=== PATIENT | female | born 1965 | race Caucasian/White ===

== ENCOUNTER 2021-08-16 11:33 | Emergency (ER) | payer OTHER ==
[~2021-08-16] VITALS: Ht 170.2 cm; Wt 113.4 kg
[~2021-08-16 11:33] MED LIST: AMOXICILLIN875 MG PO; AUGMENTIN 875-1 EACH PO; COMBIVENT RESPIM4 GM INH; DICLOFENAC SODI75 MG PO; EXCEDRIN MIGRA1 EAC2 PO; IBUPROFEN600 MG PO; METHADONE HCL10 MG PO; METHADONE HCL5 MG PO; MIGRAINE RELIE1 EACH PO; MYRBETRIQ50 MG PO; OMEPRAZOLE40 MG PO; PREDNISONE20 MG PO; ROBAXIN-750750 MG PO; VENTOLIN HFA18 GM INH; VIVELLE-DOT1 EAC1 TD
--- OUTSIDE RECORDS SUMMARY | 2021-08-16 11:36 | XMS ---
PreManage Notification: DAVE PABON Security Labor Relations Manager Events No recent Security Events currently on file CRITERIA MET - ANDREWP CARE PROVIDERS DHEERAJ MORFIN Family [facility] Current PHONE: Unknown RASHAWN De Leon Physical Medicine \T\ Rehabilitation Current PHONE: Unknown Cece has no Care Guidelines for this patient. Vickie VISIT COUNT (12 MO.) Candice Macias TOTAL 1 NOTE: Visits indicate total known visits. ED/UCC VISIT TRACKING (12 MO.) 08/16/2021 11:34 LO[facility] Horowitz [place] TYPE: Emergency COMPLAINT: - POSS BLOODCLOT INPATIENT VISIT TRACKING (12 MO.) No inpatient visits to display in this time frame [email or web address]
[2021-08-16] MEDS ORDERED: OXYCODONE HCL5 MG PO (12:12)
[2021-08-16] MEDS ORDERED: MAPAP500 MG PO (12:14)
[2021-08-16] MEDS ORDERED: ZANAFLEX4 M1 PO (12:15)
[2021-08-16] MEDS ORDERED: MIRALAX17 GM PO (12:15)
[2021-08-16] MEDS ORDERED: BENADRYL25 MG PO (12:15)
[2021-08-16] MEDS ORDERED: FLONASE ALLERG9.9 ML (12:16)
== END 2021-08-16 15:00 | disposition home or self-care (01) ==
LOC: ED 11:33
DX: R60.0 Localized edema (principal); J44.9 Chronic obstructive pulmonary disease, unspecified; M06.9 Rheumatoid arthritis, unspecified; M19.90 Unspecified osteoarthritis, unspecified site; F17.200 Nicotine dependence, unspecified, uncomplicated; Z88.0 Allergy status to penicillin; Z88.1 Allergy status to other antibiotic agents; Z88.5 Allergy status to narcotic agent; Z79.899 Other long term (current) drug therapy; Z79.51 Long term (current) use of inhaled steroids; Z79.01 Long term (current) use of anticoagulants
CPT/HCPCS: 93971; 99283-25

== ENCOUNTER 2023-01-16 11:40 | Emergency (ER) | payer OTHER ==
--- OUTSIDE RECORDS SUMMARY | ~2023-01-16 | XMS | Continuity of Care Document ---
Demographics + + + | Address | [address] | | | [place] [address] | + + + | Preferred Language | Unknown | + + + | Marital Status | | + + + | Christianity Affiliation | Unknown | + + + | Race | White | + + + | Ethnic Group | Unknown | + + + Author + + + | Author | [facility] | + + + | Organization | [facility] | + + + | Address | [address] | | | [place] [address] | + + + | Phone | | + + + Care Team Providers + + + + | Care Senior Ui Designer Name | Role | Phone | + + + + Unavailable | Unavailable | + + + + Allergies No information. Encounters No information. Functional Status No information. Immunizations No information. Medications No information. Problems + + + + | date | description | facility | + + + + | 2023-01-02 17:37 | OTHER SPECIFIED SOFT | [facility] | | | TISSUE DISORDERS | | + + + + | 2023-01-02 17:37 | LOCALIZED ENLARGED LYMPH | [facility] | | | NODES | | + + + + Procedures No information. Results/Labs No information. Social History No information. Vital Signs No information."
[~2023-01-16 11:40] MED LIST changes: +BENADRYL25 MG PO; +FLONASE ALLERG9.9 ML; +MAPAP500 MG PO; +MIRALAX17 GM PO; +OXYCODONE HCL5 MG PO; +ZANAFLEX4 M1 PO
--- OUTSIDE RECORDS SUMMARY | 2023-01-16 11:42 | XMS ---
PreManage Notification: DAVE PABON Security Ccnp Events No recent Security Events currently on file CRITERIA MET - ANDREWP CARE PROVIDERS -, [place]- Dentist: Drop Press Hand [facility] PHONE: [phone] DHEERAJ MORFIN Family Medicine Current PHONE: Unknown RASHAWN De Leon Physical Medicine \T\ Rehabilitation Current PHONE: Unknown Cece has no Care Guidelines for this patient. E.D. VISIT COUNT (12 MO.) 1 LOLLY Macias TOTAL 1 NOTE: Visits indicate total known visits. ED/UCC VISIT TRACKING (12 MO.) 01/16/2023 11:41 LO[facility] Horowitz [place] TYPE: Emergency COMPLAINT: - SWOLLEN FEET, SOB INPATIENT VISIT TRACKING (12 MO.) 05/21/2022 08:07 [facility] Yissel VIRAMONTES TYPE: Surgery DIAGNOSES: - Encounter for other preprocedural examination - Spondylolisthesis, lumbar region [id number]
[2023-01-16 13:23] VITALS: BP 142/89
== END 2023-01-16 13:24 | disposition home or self-care (01) ==
LOC: ED 11:40
DX: R60.0 Localized edema (principal); J44.9 Chronic obstructive pulmonary disease, unspecified; M06.9 Rheumatoid arthritis, unspecified; F17.200 Nicotine dependence, unspecified, uncomplicated; Z88.0 Allergy status to penicillin; Z88.5 Allergy status to narcotic agent; Z88.1 Allergy status to other antibiotic agents; Z79.899 Other long term (current) drug therapy; Z79.82 Long term (current) use of aspirin
CPT/HCPCS: 99284

== ENCOUNTER 2023-03-29 05:45 | Day surgery (SDC) | payer OTHER ==
[2023-03-25 10:09] VITALS: BP 131/94
[~2023-03-29] VITALS: Ht 170.2 cm; Wt 102.3 kg
[~2023-03-29 05:45] MED LIST changes: +MOVE FREE ULTR1 EAC2 PO
[2023-03-29 06:05] VITALS: BP 142/84
--- NOTE | 2023-03-29 08:31 | NUR ---
03/29/23 0831 Susan Thomas PT ARRIVED TO PACU AWAKE AND TALKING.100% ON RA. REPORTS BELLY JUST FEELS A LITTLE CRAMPY. DISCUSSED PASSING GAS TO HELP RELIEVE DISCOMFORT.
[2023-03-29 08:54] VITALS: BP 115/104
--- NOTE | 2023-03-29 09:51 | OR ---
[facility] [address], [place] [address] Signed DATE OF OPERATION: 03/29/2023 SURGEON: Mateus Ramos MD PREOPERATIVE DIAGNOSES: 1. Left upper quadrant abdominal pain approximately two years. 2. Personal history of colonic polyps in 2017 at the age of 51. 3. A brother with Crohn's disease diagnosed in his teens. POSTOPERATIVE DIAGNOSES: 1. 3 mm polyps x3 at rectosigmoid junction (12-15 cm). 2. Minimal sigmoid diverticulosis. 3. Tortuous sigmoid colon. PROCEDURE: Colonoscopy with hot biopsy. ESTIMATED BLOOD LOSS: None. INDICATIONS: Dave is a 57-year-old obese female, asked to see me for followup colonoscopy. She has had various GI complaints for many years. She told me her stool usually was loose most of her life. She said she often had to run to the bathroom. She said now the stool is more firm and she is going about every three days. She said this has occurred now for about two years. She said it has actually been a change for the better. We know her brother was diagnosed with Crohn's disease in his teenage years. He now has to wear a bag. She has been complaining specifically of left upper quadrant abdominal pain for at least a year and a half if not two years. She said it is a dull ache. It does not seem to change. She has been working with her primary care provider. Her colonoscopy in 2017 at the age of 51 at [facility] showed some polyps. She thinks maybe she was supposed to return in 5 years. We have been trying to track down those results. She has been to both a sensitizer and a platform inspector and apparently everything was relatively fine. She has some level of emphysema and fibrosis. The idea of ischemic colitis of the splenic flexure seems to be less likely at this time. She also suffers with chronic pain and has been on various medications including methadone currently. We know in the past she had a tubal ligation, later she had the left ovary and fallopian tube removed. She also has had a hysterectomy. She was asked to see me for a repeat upper endoscopy. In the office, I gave her a pamphlet on upper endoscopy. We looked at it together. She understands the nature of the test. Electronically Signed By: MATEUS RAMOS MD 03/29/23 0951 PATIENT NAME: DAVE PABON OPERATIVE REPORT DATE OF : 65 REPORT #: [id number] PHYSICIAN: MATEUS RAMOS MD PCP: DHEERAJ MORFIN MD REPORT IS CONFIDENTIAL AND NOT TO BE RELEASED WITHOUT AUTHORIZATION [facility] [address], [place] [address] Signed There is risk including, but not limited to gas bloating, crampy abdominal pain, bleeding, perforation requiring surgery, and missed diagnosis. We also gave her a full gallon of polyethylene glycol along with dulcolax tablets. We also asked for monitored anesthesia care given her medical history including her full round face, heavy chest and abdomen along with her need for methadone. That actually proved to be a flores decision today and she needed multiple different drugs and uptitration of the drugs. She had expressed understanding and wished to proceed. PROCEDURE NOTE: Dave was taken into our endoscopy suite and placed in the left lateral decubitus position. She was given monitored anesthesia care to include propofol infusion per our nurse retail parts pro. A digital rectal exam was performed. This was unremarkable. She had no external hemorrhoids. She had good sphincter tone. There were no masses. The adult colonoscope was introduced and it took a good 5 to 8 minutes to get through the sigmoid colon. It is quite tortuous. We had to uptitrate all her medications and finally she settled down enough that I got the camera through the sigmoid colon. Once I guided in the sigmoid colon, I had to pass the camera back and forth a few times in order to straighten the camera. At that point, we had to rotator her into the supine position. We then were able to get the camera around and into the cecum fairly uneventfully. Overall, prep was good. She had just a little bit of liquid particulate stool matter. Most of that was suctioned out. In the end, we could see the appendiceal orifice and the ileocecal valve. The scope was then slowly withdrawn. She had no inflammatory changes throughout the entire colon or rectum. Nothing concerning around the splenic flexure or left colon. She does have some diverticula in her sigmoid colon. They are small to moderate in size, few in number and scattered about. Again, the colonoscope dragged a little bit coming back through the sigmoid colon. It feels like her sigmoid colon is a little bit fixed from her previous pelvic surgeries. We found just a few tiny 3 mm polyps at the rectosigmoid junction right around 12-15 cm. There were easily removed with the hot biopsy forceps. We had taken out a couple of biopsies, one in the left colon and one in the sigmoid colon due to her change in bowel habits. Once in the rectum, the scope had been retroflexed and there was no additional pathology noted above the anal canal. After this, the gas was suctioned out and the colonoscope removed. Dave tolerated the procedure quite well. RECOMMENDATIONS: I will see Dave back in my office in 7 to 14 days to review her results. She could consider a barium enema and even advance testing if necessary. Mateus Ramos MD Electronically Signed By: MATEUS RAMOS MD 03/29/23 0951 PATIENT NAME: DAVE PABON OCTOBER OPERATIVE REPORT DATE OF : 65 REPORT #: [id number] PHYSICIAN: MATEUS RAMOS MD PCP: DHEERAJ MORFIN MD REPORT IS CONFIDENTIAL AND NOT TO BE RELEASED WITHOUT AUTHORIZATION [address] [address] Signed [facility] /[id number] cc: MD Mateus Bennett MD Copies: DHEERAJ MORFIN MD, ANDREW L MD ~ Electronically Signed By: MATEUS RAMOS MD 03/29/23 0951 PATIENT NAME: DAVE PABON OCTOBER OPERATIVE REPORT DATE OF : 65 REPORT #: [id number] PHYSICIAN: MATEUS RAMOS MD PCP: DHEERAJ MORFIN MD REPORT IS CONFIDENTIAL AND NOT TO BE RELEASED WITHOUT AUTHORIZATION
--- NOTE | 2023-04-02 14:35 | PATH ---
[facility] [address] [facility] [place], [place] [address] Signed SPECIMEN(S): A SIGMOID POLYP SPECIMEN(S): B COLON BIOPSY SPECIMEN SOURCE: A. SIGMOID POLYP B. COLON BIOPSY CLINICAL HISTORY: Colonoscopy. History of polyps FINAL PATHOLOGIC DIAGNOSIS: A. Sigmoid polyp: - Polypoid colonic mucosa with slight hyperplastic features (3 fragments). - Negative for atypical features or pathologic inflammation. B. Colon biopsy: - Benign colonic mucosa, negative for pathologic inflammation or epithelial dysplasia. JVR:vania MICROSCOPIC EXAMINATION: Histologic sections of all submitted blocks are examined by light microscopy. These findings, together with the gross examination, support the pathologic diagnosis. GROSS DESCRIPTION: A. The specimen, labeled and designated "Futter, sigmoid polyp," is received in formalin and consists of three hoyt soft tissue fragments, ranging from 0.2-0.3 cm. Entirely submitted in (A1). B. The specimen, labeled and designated "Futter, colon biopsy," is received in formalin and consists of one hoyt soft tissue fragment, 0.3 cm. Entirely submitted in (B1). VB (under the direct supervision of a pathologist) The Gross Description was prepared using a voice recognition system. The report was reviewed for accuracy; however, sound-alike word errors, addition and/or deletions may occur. If there is any question about this report, please contact Client Services. PERFORMING LABORATORY: Technical component was performed by [facility], [address] [place] [id number] (CLIA# [id number]). Professional interpretation was performed by [facility] Camilo Gonzales PATIENT NAME: DAVE PABON PATHOLOGY DATE OF : 65 REPORT #: [id number] PHYSICIAN: [facility] PCP: DHEERAJ MORFIN MD REPORT IS CONFIDENTIAL AND NOT TO BE RELEASED WITHOUT AUTHORIZATION [facility] [address] [place], [place] [address] [place] [address] (CLIA#: [id number]). Diagnostician: Ranjit Zhong MD Pathologist Electronically Signed 04/02/2023 Copies: ~ PATIENT NAME: DAVE PABON PATHOLOGY DATE OF : 65 REPORT #: [id number] PHYSICIAN: [facility] PCP: DHEERAJ MORFIN MD REPORT IS CONFIDENTIAL AND NOT TO BE RELEASED WITHOUT AUTHORIZATION
== END 2023-03-29 09:07 | disposition home or self-care (01) ==
LOC: OPS 05:45 → DS 05:45 → OPS 07:30 → DS 07:30 → OPS 09:07
PROVIDERS: ATTEND Colon & Rectal Surgery
PROC: 0DBN8ZZ Excision of Sigmoid Colon, Via Natural or Artificial Opening Endoscopic (ICD-10-PCS; 2023-03-29)
PROC: 0DBM8ZZ Excision of Descending Colon, Via Natural or Artificial Opening Endoscopic (ICD-10-PCS; principal; 2023-03-29 07:30)
DX: K63.5 Polyp of colon (principal); R10.12 Left upper quadrant pain; R19.4 Change in bowel habit; Z83.79 Family history of other diseases of the digestive system; G89.4 Chronic pain syndrome; E66.9 Obesity, unspecified; Z68.33 Body mass index [BMI] 33.0-33.9, adult; J44.9 Chronic obstructive pulmonary disease, unspecified; M32.9 Systemic lupus erythematosus, unspecified
CPT/HCPCS: 00811; 88305; J2001; J2405; J2704; J3010; J3490; J7121

== ENCOUNTER 2024-01-23 11:43 | Emergency (ER) | payer OTHER ==
[~2024-01-23] VITALS: Ht 170.2 cm; Wt 102.1 kg
[~2024-01-23 11:43] MED LIST changes: +CEFDINIR300 MG PO; +FUROSEMIDE20 MG; +ONDANSETRON ODT8 MG PO; +PROMETHAZINE HC25 M1 PO
--- OUTSIDE RECORDS SUMMARY | 2024-01-23 11:44 | XMS ---
PreManage Notification: DAVE PABON Security Cement Mixer Events 1 event(s) in the past 18 months Most recent security events: Elopement at [facility] 04/29/2023 22:34 - Patient eloped with IV in place. - Patient eloped before treatment completed. - Patient with suicidal and/or homicidal ideations eloped. Details: Patient LWBS CRITERIA MET - Group Notification - PDMP CARE PROVIDERS -, [facility] Dentist: Accounting Clerks Supervisor [facility] PHONE: [phone] -, [place]- Dentist: Accounting Clerks Supervisor [facility] PHONE: [phone] BLAYNE HOWARD Physician Profiler Current PHONE: [phone] [facility]/Center: [facility] Current \F\ [facility] PHONE: [phone] RASHAWN De Leon Physical Medicine \T\ Rehabilitation Current PHONE: Unknown Cece has no Care Guidelines for this patient. ENavjot VISIT COUNT (12 MO.) Yann Macias TOTAL 4 NOTE: Visits indicate total known visits. ED/UCC VISIT TRACKING (12 MO.) 01/23/2024 11:44 [facility] Horowitz [place] TYPE: Emergency COMPLAINT: - BLOOD PRESSURE PROBLEM 06/13/2023 08:19 [facility]owitz [place] TYPE: Emergency COMPLAINT: - VOMITING DIAGNOSES: - Allergy status to narcotic agent - Allergy status to other drugs, medicaments and biological substances - Allergy status to penicillin - Chronic obstructive pulmonary disease, unspecified - Fibromyalgia - ferry terminal agent (current) use of aspirin - ferry terminal agent (current) use of inhaled steroids - Nausea with vomiting, unspecified - Nicotine dependence, unspecified, uncomplicated - Other truck terminal manager (current) drug therapy - Rheumatoid arthritis, unspecified - Sjogren syndrome, unspecified - Tubulo-interstitial nephritis, not specified as acute or chronic - Unspecified osteoarthritis, unspecified site 05/28/2023 01:27 LO[facility] Horowitz [place] TYPE: Emergency COMPLAINT: - HEAD INJURY DIAGNOSES: - Allergy status to narcotic agent - Allergy status to other drugs, medicaments and biological substances - Allergy status to penicillin - Chronic obstructive pulmonary disease, unspecified - Concussion without loss of consciousness, initial encounter - Fall from or off toilet without subsequent striking against object, initial encounter - Laceration without foreign body of scalp, initial encounter - Nausea - Nicotine dependence, unspecified, uncomplicated 04/29/2023 22:34 LO[facility] Horowitz [place] TYPE: Emergency COMPLAINT: - RT SIDE PAIN INPATIENT VISIT TRACKING (12 MO.) No inpatient visits to display in this time frame [id number]
[2024-01-23] MEDS ORDERED: OXYBUTYNIN CHLO10 MG PO (12:12)
[2024-01-23 12:59] LABS: BASOPHILS 1.5 % (0-2); EOSINOPHILS 0.4 % (0-6); HEMATOCRIT 43.5 % (35.0-50.0); HEMOGLOBIN 14.2 g/dL (12.0-18.0); LYMPHOCYTES 16.7 % (24-44); MCH 31.2 (27-36); MCHC 32.6 g/dl (30-36); MCV 95.6 fl (81-99); NEUTROPHILS 73.4 % (39-80); PLATELET COUNT 261 K/uL (140-440); RBC 4.55 M/ul (4.3-5.7); RDW 13.2 (10.5-15.0)
[2024-01-23] MEDS ORDERED: hydrALAZINE HCL 20 MG/ML VIAL IV ONE (13:00)
[2024-01-23 13:06] LABS: ALBUMIN 3.5 g/dL (3.4-5.0); ALBUMIN/GLOBULIN RATIO 0.88 (1.1-2.4); ANION GAP 13.8 (7-21); BUN/CREATININE RATIO 13.48 (6.0-28.6); CALCIUM 9.3 mg/dL (8.5-10.1); CREATININE, SERUM 0.89 mg/dL (0.55-1.02); MAGNESIUM 2.1 mg/dL (1.8-2.4); POTASSIUM 3.8 mmol/L (3.5-5.1); PROTEIN, TOTAL 7.5 g/dL (6.4-8.2)
[2024-01-23 13:10] LABS: INR 0.89 (0.80-1.30); PARTIAL THROMBOPLASTIN TIME 26.3 Sec (22.9-41.3); PROTIME 11.4 Sec (11.2-14.2)
[2024-01-23] MEDS ORDERED: NORVASC5 MG PO (15:14)
[2024-01-23 15:19] VITALS: BP 154/93
--- NOTE | 2024-01-23 15:42 | EKG ---
[facility] [address] [facility] [place] [address] Signed Sinus bradycardia Low voltage QRS Borderline ECG When compared with ECG of 25-MAR-2023 10:17, No significant change was found Confirmed by Shelli Mendoza ([id number]) on 01/23/2024 3:41:47 PM Electronically Signed By: SHELLI MENDOZA MD 01/23/24 1542 PATIENT NAME: DAVE PABON MILAGROS Electrocardiogram DATE OF : 65 PHYSICIAN: SHELLI MENDOZA MD REPORT #: [id number] REPORT IS CONFIDENTIAL AND NOT TO BE RELEASED WITHOUT AUTHORIZATION
== END 2024-01-23 15:19 | disposition home or self-care (01) ==
LOC: ED 11:43
PROVIDERS: Emergency Medicine
DX: I10 Essential (primary) hypertension (principal); R07.89 Other chest pain; J44.9 Chronic obstructive pulmonary disease, unspecified; F17.200 Nicotine dependence, unspecified, uncomplicated; Z79.82 Long term (current) use of aspirin; Z79.51 Long term (current) use of inhaled steroids; Z79.899 Other long term (current) drug therapy; Z88.0 Allergy status to penicillin; Z88.5 Allergy status to narcotic agent; Z88.1 Allergy status to other antibiotic agents; Z88.8 Allergy status to other drugs, medicaments and biological substances
CPT/HCPCS: 36415; 70498; 71260; 80053; 83735; 84484; 85025; 85610; 85730; 93005; 93010; 99285-25; J0360; Q9967

== ENCOUNTER 2024-05-28 12:25 | Emergency (ER) | payer OTHER ==
[~2024-05-28] VITALS: Ht 170.2 cm; Wt 112.6 kg
[~2024-05-28 12:25] MED LIST changes: +NORVASC5 MG PO; +OXYBUTYNIN CHLO10 MG PO
--- OUTSIDE RECORDS SUMMARY | 2024-05-28 12:27 | XMS ---
PreManage Notification: DAVE PABON Security Water Restoration Technician Events 1 event(s) in the past 18 months Most recent security events: Elopement at [facility] 04/29/2023 22:34 - Patient eloped with IV in place. - Patient eloped before treatment completed. - Patient with suicidal and/or homicidal ideations eloped. Details: Patient LWBS CRITERIA MET - Group Notification CARE PROVIDERS -, [facility] Dentist: Awning Maker And Installer [facility] PHONE: [phone] -[place]- Dentist: Awning Maker And Installer [facility] PHONE: [phone] [facility]: [facility] PHONE: [phone] RASHAWN De Leon Physical Medicine \T\ Rehabilitation Current PHONE: Unknown Cece has no Care Guidelines for this patient. E.DXimena VISIT COUNT (12 MO.) 3 LOLLY Macias TOTAL 3 NOTE: Visits indicate total known visits. ED/UCC VISIT TRACKING (12 MO.) 05/28/2024 12:26 [facility] Horowitz [place] TYPE: Emergency COMPLAINT: - URINE PROBLEMS 01/23/2024 11:44 [facility] Horowitz [place] TYPE: Emergency COMPLAINT: - BLOOD PRESSURE PROBLEM DIAGNOSES: - Allergy status to narcotic agent - Allergy status to other antibiotic agents - Allergy status to other drugs, medicaments and biological substances - Allergy status to penicillin - Chronic obstructive pulmonary disease, unspecified - Essential (primary) hypertension - care home (current) use of aspirin - terminal system operator (current) use of inhaled steroids - Nicotine dependence, unspecified, uncomplicated - Other chest pain - Other prison (current) drug therapy 06/13/2023 08:19 [facility]owitz [place] TYPE: Emergency COMPLAINT: - VOMITING DIAGNOSES: - Allergy status to narcotic agent - Allergy status to other drugs, medicaments and biological substances - Allergy status to penicillin - Chronic obstructive pulmonary disease, unspecified - Fibromyalgia - care home (current) use of aspirin - care home (current) use of inhaled steroids - Nausea with vomiting, unspecified - Nicotine dependence, unspecified, uncomplicated - Other prison (current) drug therapy - Rheumatoid arthritis, unspecified [...] - Nausea - Nicotine dependence, unspecified, uncomplicated INPATIENT VISIT TRACKING (12 MO.) [facility]18[facility]24 05:[facility] DIAGNOSES: - Arthrodesis status - Other chronic pain - Radiculopathy, lumbar region - Sacrococcygeal disorders, not elsewhere classified - Other intervertebral disc degeneration, lumbar region with discogenic back pain and lower extremity pain [email or web address]
[2024-05-28 12:54] LABS: BILIRUBIN, URINE NEGATIVE (negative); BLOOD/HGB, URINE NEGATIVE (Negative); KETONE, URINE NEGATIVE (Negative); LEUK ESTERASE, URINE NEGATIVE (negative); NITRITE, URINE NEGATIVE (negative); PH, URINE 6.5 (5-7)
[2024-05-28 12:59] LABS: BACTERIA, URINE NONE SEEN /hpf (negative); CASTS, URINE NONE SEEN \\lpf; COLLECTION TYPE, URINE CLEAN CATCH; CRYSTALS, URINE NONE SEEN (0-1+); EPITHELIAL CELLS, URINE SQUAMOUS 2+ /lpf (0-1+); RED BLOOD CELLS, URINE 0-1 /hpf (0-5); REFLEX CULTURE, URINE No (No); WHITE BLOOD CELLS, URINE 0-1 /HPF (0-5)
[2024-05-28] MEDS ORDERED: FUROSEMIDE 40 MG/4 ML VIAL IV ONE (13:00)
[2024-05-28 13:46] LABS: INFLUENZA B NAA NEGATIVE (NEGATIVE); RESPIRATORY SYNCYTIAL VIR NAA NEGATIVE (NEGATIVE)
[2024-05-28 13:47] LABS: EOSINOPHILS 2.1 % (0-6); HEMATOCRIT 32.2 % (35.0-50.0); HEMOGLOBIN 10.8 g/dL (12.0-18.0); LYMPHOCYTES 34.8 % (24-44); MCH 32.1 (27-36); MCHC 33.6 g/dl (30-36); MCV 95.6 fl (81-99); MONOCYTES 12.5 % (0-12); NEUTROPHILS 49.6 % (39-80); PLATELET COUNT 319 K/uL (140-440); RBC 3.37 M/ul (4.3-5.7)
[2024-05-28 14:02] LABS: ALBUMIN 2.7 g/dL (3.4-5.0); ALBUMIN/GLOBULIN RATIO 0.64 (1.1-2.4); ANION GAP 11.3 (7-21); BILIRUBIN, TOTAL 0.4 ng/dL (0.2-1.0); BUN/CREATININE RATIO 10.63 (6.0-28.6); CALCIUM 8.7 mg/dL (8.5-10.1); CREATININE, SERUM 0.94 mg/dL (0.55-1.02); POTASSIUM 3.3 mmol/L (3.5-5.1); PROTEIN, TOTAL 6.9 g/dL (6.4-8.2)
[2024-05-28 15:23] VITALS: BP 123/77
--- NOTE | 2024-05-30 11:26 | EKG ---
[facility] [address] [facility] [place], [place] [address] Signed Sinus bradycardia Low voltage QRS Borderline ECG When compared with ECG of 23-JAN-2024 13:02, No significant change was found Confirmed by Kalen Dubon MD ([id number]) on 05/30/2024 11:26:44 AM Electronically Signed By: KALEN DUBON MD 05/30/24 1126 PATIENT NAME: DAVE PABON MILAGROS Electrocardiogram DATE OF : 65 PHYSICIAN: KALEN DUBON MD REPORT #: [id number] REPORT IS CONFIDENTIAL AND NOT TO BE RELEASED WITHOUT AUTHORIZATION
== END 2024-05-28 15:23 | disposition other institution, planned readmission (95) ==
LOC: ED 12:25
PROVIDERS: Emergency Medicine
DX: R06.02 Shortness of breath (principal); R60.0 Localized edema; J44.9 Chronic obstructive pulmonary disease, unspecified; M06.9 Rheumatoid arthritis, unspecified; Z88.0 Allergy status to penicillin; Z88.1 Allergy status to other antibiotic agents; Z88.5 Allergy status to narcotic agent; Z88.3 Allergy status to other anti-infective agents; Z79.899 Other long term (current) drug therapy
CPT/HCPCS: 36415; 71045; 80053; 81001; 83880; 84484; 85025; 87502; 93005; 93010; 96374; 99285-25; J1940; U0002

== ENCOUNTER 2024-06-16 12:34 | Inpatient (IN) | payer OTHER ==
[2024-06-16] VITALS (14 sets, daily range): BP systolic 69–97; BP diastolic 48–63
[~2024-06-16] VITALS: Ht 170.2 cm; Wt 106.2 kg
[~2024-06-16 12:34] MED LIST changes: -FLONASE ALLERG9.9 ML; +FLONASE ALLERG9.9 ML NAS; -FUROSEMIDE20 MG; +FUROSEMIDE20 MG PO
--- OUTSIDE RECORDS SUMMARY | 2024-06-16 13:14 | XMS ---
PreManage Notification: DAVE PABON Security Director Supplier Quality Events 1 event(s) in the past 18 months Most recent security events: Elopement at [facility] 04/29/2023 22:34 - Patient eloped with IV in place. - Patient eloped before treatment completed. - Patient with suicidal and/or homicidal ideations eloped. Details: Patient LWBS CRITERIA MET - Group Notification - [facility] - 2 Visits in 30 Days CARE PROVIDERS -, [facility] Dentist: Cash Surrender Calculator [facility] PHONE: [phone] -, [place]- Dentist: Cash Surrender Calculator [facility] PHONE: [phone] [facility]: [facility] PHONE: [phone] RASHAWN De Leon Physical Medicine \T\ Rehabilitation Current PHONE: Unknown Cece has no Care Guidelines for this patient. Vickie VISIT COUNT (12 MO.) 3 LOLLY Macias TOTAL 3 NOTE: Visits indicate total known visits. ED/UCC VISIT TRACKING (12 MO.) 06/16/2024 12:35 [facility] [place] TYPE: Emergency COMPLAINT: - FLU SYMPTOMS 05/28/2024 12:26 [facility] [place] TYPE: Emergency COMPLAINT: - URINE PROBLEMS DIAGNOSES: - Allergy status to narcotic agent - Allergy status to other anti-infective agents - Allergy status to other antibiotic agents - Allergy status to penicillin - Chronic obstructive pulmonary disease, unspecified - Localized edema - Other fdc (current) drug therapy - Rheumatoid arthritis, unspecified - Shortness of breath 01/23/2024 11:44 [facility] [place] TYPE: Emergency COMPLAINT: - BLOOD PRESSURE PROBLEM DIAGNOSES: - Allergy status to narcotic agent - Allergy status to other antibiotic agents - Allergy status to other drugs, medicaments and biological substances - Allergy status to penicillin - Chronic obstructive pulmonary disease, unspecified - Essential (primary) hypertension - extermination supervisor (current) use of aspirin - extermination supervisor (current) use of inhaled steroids - Nicotine dependence, unspecified, uncomplicated - Other chest pain - Other longitudinal float operator (current) drug therapy INPATIENT VISIT TRACKING (12 MO.) [facility] DIAGNOSES: - Arthrodesis status - Other chronic pain - Radiculopathy, lumbar region - Sacrococcygeal disorders, not elsewhere classified - Other intervertebral disc degeneration, lumbar region with discogenic back pain and lower extremity pain [email or web address]
[2024-06-16] MEDS ORDERED: ACETAMINOPHEN 500 MG TAB PO ONE (13:15)
[2024-06-16] MEDS ORDERED: MORPHINE SULFATE 4 MG/ML VIAL IV ONE (13:15)
[2024-06-16 13:43] LABS: INFLUENZA B NAA NEGATIVE (NEGATIVE); RESPIRATORY SYNCYTIAL VIR NAA NEGATIVE (NEGATIVE)
[2024-06-16] MEDS ORDERED: levoFLOXacin 500 MG PIGGYBACK IV ONE (13:45)
[2024-06-16 13:46] LABS: HEMATOCRIT 37.3 % (35.0-50.0); HEMOGLOBIN 12.7 g/dL (12.0-18.0); MCH 31.1 (27-36); MCHC 34.1 g/dl (30-36); MCV 91.3 fl (81-99); PLATELET COUNT 242 K/uL (140-440); RBC 4.08 M/ul (4.3-5.7); RDW 13.1 (10.5-15.0)
[2024-06-16] MEDS ORDERED: ondansetron HCL 4 MG/2 ML VIAL IV ONE (14:00)
[2024-06-16] MEDS ORDERED: SODIUM CHLORIDE 0.9% 1,000 ML IV PRN ×2 (14:00→15:15)
[2024-06-16 14:02] LABS: BANDS, MANUAL DIFF 6; EOSINOPHILS, MANUAL DIFF 1; LYMPHOCYTES, MANUAL DIFF 8; MONOCYTES, MANUAL DIFF 3; NEUTROPHILS, MANUAL DIFF 82
[2024-06-16 14:13] LABS: ALBUMIN 3.1 g/dL (3.4-5.0); ALBUMIN/GLOBULIN RATIO 0.65 (1.1-2.4); ANION GAP 12.9 (7-21); BILIRUBIN, TOTAL 1.1 ng/dL (0.2-1.0); BUN/CREATININE RATIO 10.83 (6.0-28.6); CALCIUM 9.2 mg/dL (8.5-10.1); CREATININE, SERUM 1.2 mg/dL (0.55-1.02); POTASSIUM 2.9 mmol/L (3.5-5.1); PROTEIN, TOTAL 7.9 g/dL (6.4-8.2)
[2024-06-16] MEDS ORDERED: SODIUM CHLORIDE 0.9% 1,000 ML IV SCH ×2 (15:15→17:00)
[2024-06-16] MEDS ORDERED: IBUPROFEN 600 MG TAB PO ONE (16:00)
[2024-06-16] MEDS ORDERED: ondansetron HCL 4 MG/2 ML VIAL IV PRN (17:00)
[2024-06-16] MEDS ORDERED: ACETAMINOPHEN 325 MG TAB PO PRN (17:00)
[2024-06-16] MEDS ORDERED: OXYCODONE/APAP 10/325 TAB PO PRN (17:15)
--- NOTE | 2024-06-16 18:40 | NUR ---
58 YEAR OLD FEMALE PATIENT [facility] WITH DX OF PNEUMONIA. HAS RECENT BACK SURGERY. HAS HAS INTERMITTENT FEVER FOR THE PAST 3 DAYS. VOMITED THIS MORNING. FACE IS BIRGHT RED IN COLOR. ADMISSION PROCESS STARTED. IVF AT 125 ML/HR. C/O PAIN IN HEADACHE, LEFT HIP PAIN, BACK PAIN.
[2024-06-16 18:47] LABS: BILIRUBIN, URINE NEGATIVE (negative); BLOOD/HGB, URINE NEGATIVE (Negative); KETONE, URINE NEGATIVE (Negative); LEUK ESTERASE, URINE TRACE (negative); NITRITE, URINE POSITIVE (negative); PH, URINE 5.5 (5-7)
[2024-06-16 18:58] LABS: RED BLOOD CELLS, URINE 0-1 /hpf (0-5)
[2024-06-16 18:59] LABS: BACTERIA, URINE 2+ /hpf (negative); CASTS, URINE NONE SEEN \\lpf; COLLECTION TYPE, URINE CLEAN CATCH; CRYSTALS, URINE NONE SEEN (0-1+); EPITHELIAL CELLS, URINE SQUAMOUS 1+ /lpf (0-1+); REFLEX CULTURE, URINE Yes (No)
--- NOTE | 2024-06-16 19:00 | NUR ---
DR. BAIRES UPDATED ON BP AND PAIN. AWARE OF K+LEVEL OF 2.9.
[2024-06-16] MEDS ORDERED: TIZANIDINE HCL 4 MG TABLET PO PRN (19:30)
--- NOTE | 2024-06-16 19:45 | NUR ---
REPORT RECEIVED FROM MAXWELL LOWE. PT IS AWAKE WITH FAMILY IN ROOM, DENIES NEEDS AT THIS TIME.
--- NOTE | 2024-06-16 19:47 | NUR ---
REPORT TO NEXT SHIFT. FAMILY MEMBERS ARE IN ROOM.
[2024-06-16] MEDS ORDERED: NOREPINEPHRINE BITARTRATE 250 ML IV SCH (20:15)
[2024-06-16] MEDS ORDERED: POTASSIUM CHLORIDE 10 MEQ/100 ML BAG IV ONE (20:15)
--- NOTE | 2024-06-16 20:36 | NUR ---
PT UP TO BATHROOM TO VOID, MISSED HAT, HR REMAINED STEADY IN 90'S WHILE UP, PT WAS STEADY ON HER FEET, SBA WITH CORDS ONLY, DENIES DIZZINESS/LIGHTHEADEDNESS. O2 REMOVED FOR PT TO GET UP, SPO2 90-100% ON ROOM AIR AND PT DENIES FEELING SOB SO WILL KEEP O2 OFF FOR NOW. PT DOES START HAVING CHILLS WITH GETTING UP. WARM BLANKET PROVIDED, TEMP RECHEKED IS 98.6 AXILLARY.
[2024-06-16] MEDS ORDERED: MAGNESIUM SULFATE 2 GM/50 ML BAG IV SCH (20:45)
[2024-06-16] MEDS ORDERED: MELATONIN 3 MG TAB PO PRN (21:00)
[2024-06-16] MEDS ORDERED: GABAPENTIN 300 MG CAP PO SCH (21:00)
[2024-06-16] MEDS ORDERED: POTASSIUM CHLORIDE 10 MEQ/100 ML BAG IV SCH (22:00)
--- NOTE | 2024-06-16 22:00 | NUR ---
PTS IV VERY PAINFUL, NO LONGER HAS BLOOD RETURN, REMOVED WITH TIP INTACT. NEW IV STARTED IN RIGHT FOREARM WITH US. PTS BP'S ARE LOW, WILL CONT TO MONITOR AND START LEVOPHED IF MAPS ARE LESS THAN 65.
[2024-06-17] VITALS (42 sets, daily range): BP systolic 61–127; BP diastolic 48–84
--- NOTE | 2024-06-17 00:59 | NUR ---
AT 2350 PT GOT UP TO USE THE BATHROOM AND UPON GETTING BACK INTO BED SHE REPORTS CHSET PRESSURE/PAIN WITH SUDDEN INCREASE IN SHORTNESS OF BREATH. "THERES AN ELEPHANT SITTING ON MY CHEST" VS UNCHANGED FROM PREVIOUS, SPO2 REMAINS HIGH NINETIES. DR BAIRES CALLED AND UPDATED, EKG DONE, TROPONIN LAB DRAWN. DR BAIRES CAME TO ASSESS PT, ORDERED CTA/RULE OUT PE. PT TAKEN DOWN TO CT WITH RN. TOLERATED CT SCAN WELL. BACK TO CCU ROOM, UP TO BATHROOM AND THEN BACK TO BED TO TRY TO GET SOME REST. CONT TO C/O THE CHEST PRESSURE THROUGHOUT THIS TIME.
--- NOTE | 2024-06-17 01:30 | NUR ---
PTS BP'S HAVE DROPPED, LEVOPHED DRIP STARTED AT 10MCG/MIN. DR BAIRES CALLED AND UPDATED, ALSO ORDER GIVEN TO INCREASE IVF RATE TO 250ML/HR.
--- NOTE | 2024-06-17 02:28 | NUR ---
PT CONT TO REST, HR 70, BP 100/66 (70). LEVOPHED INFUSING AT 10MCG/MIN AND IVF INFUSING AT 250ML/HR.
--- NOTE | 2024-06-17 03:44 | NUR ---
PT UP TO BSC TO VOID, 900 ML URINE, BACK TO BED. SHE STATES HER HEADACHE IS GONE. HR STEADY WHILE UP. LEVOPHED DRIP TURNED DOWN TO 8MCG/MIN.
[2024-06-17 05:28] LABS: HEMATOCRIT 35.8 % (35.0-50.0); HEMOGLOBIN 11.7 g/dL (12.0-18.0); MCH 30.4 (27-36); MCHC 32.8 g/dl (30-36); MCV 92.7 fl (81-99); PLATELET COUNT 213 K/uL (140-440); RBC 3.86 M/ul (4.3-5.7); RDW 13.6 (10.5-15.0)
[2024-06-17 05:46] LABS: ALBUMIN 2.4 g/dL (3.4-5.0); ALBUMIN/GLOBULIN RATIO 0.56 (1.1-2.4); ANION GAP 17.9 (7-21); BILIRUBIN, TOTAL 1.3 ng/dL (0.2-1.0); BUN/CREATININE RATIO 12.26 (6.0-28.6); CALCIUM 8.3 mg/dL (8.5-10.1); CREATININE, SERUM 1.06 mg/dL (0.55-1.02); MAGNESIUM 3.1 mg/dL (1.8-2.4); PHOSPHORUS, INORGANIC 2.8 mg/dL (2.5-4.9); POTASSIUM 3.9 mmol/L (3.5-5.1); PROTEIN, TOTAL 6.7 g/dL (6.4-8.2)
[2024-06-17 06:08] LABS: BANDS, MANUAL DIFF 10; LYMPHOCYTES, MANUAL DIFF 10; NEUTROPHILS, MANUAL DIFF 80
--- NOTE | 2024-06-17 06:52 | NUR ---
PT HAS BEEN UP TO BSC TO VOID SEVERAL TIMES OVER THE LAST FEW HOURS. HAS TOLERATED IT WELL, DENIES DIZZINESS/LIGHTHEADEDNESS. LEVOPHED DRIP HAS BEEN TITRATED DOWN TO 4MCG/MIN.
--- NOTE | 2024-06-17 06:53 | NUR ---
PT CALLS TO REQUEST PAIN MEDICATION FOR BACK, PRN PERCOCET GIVEN.
--- NOTE | 2024-06-17 07:30 | NUR ---
REPORT RECEIVED. PATIENT IS RESTING IN BED. LEVOPHED GTT AT 4MCG/MIN. IVF INFUSING AT 250 ML/HR.
[2024-06-17] MEDS ORDERED: ENOXAPARIN SODIUM 40 MG/0.4 ML SYR SUB-Q SCH (09:00)
--- NOTE | 2024-06-17 09:00 | NUR ---
TOOK BREAKFAST POOR. STATES SHE HASN'T BEEN HUNGERY FOR A FEW DAYS. IVF NOW INFUSING AT 125 ML/HR PER MD ORDERS. UP TO COMMODE TO VOID. WITH EXERTION, HAS INCREASED WOB. STATE I FEEL LIKE I JUST RAN THE [employer]. RT TO WORK WITH WITH PATIENT.
[2024-06-17] MEDS ORDERED: ALBUTEROL/IPRATROPIUM 3 ML NEB INH PRN (09:45)
--- NOTE | 2024-06-17 10:20 | NUR ---
UR CLINICAL REVIEW: [facility] [place]-MEET INPT CRITERIA FOR PNEUMONIA ODS [facility] INPT 06/16/24 @ 1817 ORDER MATCHES REG CLINICALS SENT FOR AUTH REVIEW DISCHARGE TO HOME WHEN STABLE 06/19/24
--- NOTE | 2024-06-17 10:40 | NUR ---
VISITED DURING SPIRITUAL CARE ROUNDS. PT APPEARED TO BE SLEEPING. DID NOT DISTURB. PROVIDED PRAYER.
[2024-06-17] MEDS ORDERED: levoFLOXacin 750 MG PIGGYBACK IV SCH (12:00)
[2024-06-17] MEDS ORDERED: PHARMACY RENAL DOSE ADJUSTMENT 1 DOSE MISC PO SCH (12:00)
--- NOTE | 2024-06-17 12:17 | NUR ---
sitting up in bed for lunch. IN ROOM. LEVOPHED GTT OFF. WILL CONTINUE TO MONITOR BP. PATIENT IS AWARE. CONTINUES WITH SHORT OF BREATH, INCREASE WITH EXERTION.
[2024-06-17] MEDS ORDERED: PANTOPRAZOLE SO40 MG PO (12:39)
[2024-06-17] MEDS ORDERED: ESTRADIOL42.5 GM VAGINAL (12:40)
[2024-06-17] MEDS ORDERED: TIZANIDINE HCL4 MG PO (12:41)
[2024-06-17] MEDS ORDERED: METHYLPREDNISOLO4 M1 PO (12:43)
[2024-06-17] MEDS ORDERED: VITAMIN D21250 MCG PO (12:43)
[2024-06-17] MEDS ORDERED: PILOCARPINE HCL5 MG PO (12:54)
[2024-06-17] MEDS ORDERED: OXYCODONE HCL10 MG PO (12:56)
[2024-06-17] MEDS ORDERED: GABAPENTIN300 MG PO (12:57)
[2024-06-17] MEDS ORDERED: ONDANSETRON ODT4 MG PO (12:57)
[2024-06-17] MEDS ORDERED: LOSARTAN-HCTZ1 EACH PO (12:58)
[2024-06-17] MEDS ORDERED: PANTOPRAZOLE SODIUM 40 MG TABEC PO SCH (13:11)
[2024-06-17] MEDS ORDERED: OXYCODONE HCL 5 MG TAB PO PRN (13:15)
--- NOTE | 2024-06-17 13:21 | NUR ---
VISITING WITH . TYLENOL GIVEN FOR MARTE. DR. BAIRES CHANGING MEDS PATIENT TAKES OXYCODONE AT HOME. IVF AND ABX INFUSING.
--- NOTE | 2024-06-17 13:32 | NUR ---
NO FURTHER CHANGES. REMAINS OFF LEVOPHED GTT.
--- NOTE | 2024-06-17 13:39 | NUR ---
medications reconciled with pharmacy records and patient
--- NOTE | 2024-06-17 14:58 | NUR ---
OXYCODONE 15 MG PO GIVEN FOR BACK, LEFT HIP AND LEFT LEG PAIN. PATIENT ALSO HAS CONTINUES TO C/O HEADACHE. STATES SHE GETS MARTE AT HOME VERY OFTEN.
[2024-06-17] MEDS ORDERED: PILOCARPINE HCL 5 MG TAB PO SCH (15:00)
--- NOTE | 2024-06-17 16:10 | NUR ---
DR. BAIRES AWARE OF PATIENT HEADACHE, VITAL SIGNS AND OVERALL STATUS. ORDERS RECEUVED TO DC IVF. THIS DONE. CONTINUES TO C/O LEFT HIP PAIN, INCREASES WITH MOVEMENT. STATES THE OXYCODONE HAS HELPED A LITTLE. ASSESSMENT DONE. PATIENT IS FRUSTRATED ABOUT HER HEADACHE.
--- NOTE | 2024-06-17 16:18 | NUR ---
DR. BAIRES HERE TO SEE PATIENT AND TALK WITH PATIENT HEADACHE. DR. BAIRES WILL ORDER MIGRAINE MEDICATION. DENIES VISUAL PROBLEMS.
[2024-06-17] MEDS ORDERED: ACETAMINOPHEN 500 MG TAB PO PRN (16:30)
[2024-06-17] MEDS ORDERED: SUMAtriptan succinate 50 MG TAB PO PRN (18:00)
--- NOTE | 2024-06-17 19:00 | NUR ---
REPORT TO NEXT SHIFT. PATIENT IN ROOM. PATIENT STATES MARTE IS LESS AFTER DRINKING POP. CONTINUES TO GET SHORT OF BREATH WITH EXERTION.
--- NOTE | 2024-06-17 19:45 | NUR ---
handoff report received from day shift RN. patient laying awake in bed, with at bedside. no needs at this time. call light within reach.
--- NOTE | 2024-06-17 21:25 | NUR ---
patient up to bedside commode, voids 300cc of urine and back to bed. patient states pain 6/10 and gets worse with movement. PRN oxycodone given per emar. patient has no other needs at this time. call light within reach.
--- NOTE | 2024-06-17 22:07 | NUR ---
PATIENT CALLED AND REQUEST MORE WATER. FRESH ICE WATER PROVIDED. PATIENT IS RESTING IN BED ON PHONE. PATIENT DENIES ANY SOB OR PAIN. PATIENT DENIES ANY FURTHER NEEDS. CALL LIGHT IN REACH.
--- NOTE | 2024-06-17 22:58 | EKG ---
[facility] [address] [facility] [place] [address] Signed Normal sinus rhythm Low voltage QRS Borderline ECG When compared with ECG of 28-MAY-2024 12:59, QT has lengthened Confirmed by Ferny Baires MD () on 06/17/2024 10:58:25 PM Electronically Signed By: FERNY BAIRES MD 06/17/24 2258 PATIENT NAME: DAVE PABON MILAGROS Electrocardiogram DATE OF : 65 PHYSICIAN: FERNY BAIRES MD REPORT #: [id number] REPORT IS CONFIDENTIAL AND NOT TO BE RELEASED WITHOUT AUTHORIZATION
--- NOTE | 2024-06-17 23:31 | NUR ---
PATIENT CALLED AND REPORTED NAUSEA, PRN MEDICATION GIVEN PER ORDER. PATIENT CONTINUES TO REPORT A MIGRAINE. PATIENT OFFERED MEDICATION AND DENIES THE NEED. PATIENT OFFERED COOL RAG PATIENT DENIED THE NEEDS. PATIENT DENIES ANY FURTHER NEEDS. CALL LIGHT IN REACH.
--- NOTE | 2024-06-17 23:45 | NUR ---
PATIENT ASLEEP. PATIENT PLACED ON 2L NC, FOR SPO2 88% ON ROOM AIR. NO FURTHER NEEDS AT THIS TIME. CALL LIGHT WITHIN REACH.
[2024-06-18] VITALS (15 sets, daily range): BP systolic 99–138; BP diastolic 62–86
--- NOTE | 2024-06-18 01:30 | NUR ---
patient up to commode voided 300cc and back to bed. patient provided with fresh ice water, and cold wash cloth. no further needs at this time. call light within reach.
--- NOTE | 2024-06-18 02:22 | NUR ---
PATIENT STATES PAIN 11/17. PRN OXYCODONE GIVEN PER EMAR. NO FURTHER NEEDS AT THIS TIME. CALL LIGHT WITHIN REACH.
[2024-06-18] MEDS ORDERED: SODIUM CHLORIDE 45 ML BTL NAS PRN (02:45)
--- NOTE | 2024-06-18 04:45 | NUR ---
patient up to bedside commode, voids 250cc of clear yellow urine and back to bed. patient states she continues to have a headache. PRN Tylenol given per EMAR. patient provided with fresh ice water and cold wash cloth. no further needs at this time. call light within reach
[2024-06-18 05:50] LABS: BASOPHILS 0.2 % (0-2); EOSINOPHILS 0.4 % (0-6); HEMATOCRIT 32.9 % (35.0-50.0); HEMOGLOBIN 10.8 g/dL (12.0-18.0); LYMPHOCYTES 13.4 % (24-44); MCH 30.7 (27-36); MCHC 32.8 g/dl (30-36); MCV 93.5 fl (81-99); MONOCYTES 6.1 % (0-12); NEUTROPHILS 79.9 % (39-80); PLATELET COUNT 194 K/uL (140-440); RBC 3.52 M/ul (4.3-5.7); RDW 13.7 (10.5-15.0)
[2024-06-18 06:11] LABS: ALBUMIN 2.2 g/dL (3.4-5.0); ALBUMIN/GLOBULIN RATIO 0.5 (1.1-2.4); ANION GAP 13.6 (7-21); BILIRUBIN, TOTAL 0.5 ng/dL (0.2-1.0); BUN/CREATININE RATIO 7.59 (6.0-28.6); CALCIUM 8.6 mg/dL (8.5-10.1); CREATININE, SERUM 0.79 mg/dL (0.55-1.02); POTASSIUM 3.6 mmol/L (3.5-5.1); PROTEIN, TOTAL 6.6 g/dL (6.4-8.2)
--- NOTE | 2024-06-18 06:36 | NUR ---
PATIENT RESTING IN BED WITH EYES CLOSED, RR 17. NO NEEDS AT THIS TIMES. CALL LIGHT WITHIN REACH.
--- NOTE | 2024-06-18 07:45 | NUR ---
REPORT RECIVED FROM FLEXIBLE BABYSITTER RN. PATIENT RESTING IN BED. PER REPORT PATIENT HAS HAD A CONTINUOUS HEADACHE AND IS NOT RELIEVED BY MEDICATIONS. PATIENT REPORTS REQUESNT HEADACHES LIKE THIS AT HOME. SEE EMAR FOR MEDICATION ADMINISTRATION.
--- NOTE | 2024-06-18 09:00 | NUR ---
PATIENT SITTING UP IN THE CHAIR FOR BREAKFAST AND THEN TO CAMMODE AND BACK TO BED. PATIENT COMPLAINING OF A CONSTANT HEADACHE. PATIENT REPORTS SHE HAS HEADACHES AT HOME BUT SHE CAN "CHEAT AT HOME" FOR PAIN CONTROL REFERING TO USING MARIJUANA FOR PAIN. PATIENT CONCERNS ADDRESSED WITH MD. NO NEW ORDER AT THIS TIME. PATIENT REPORTS FEELING MUCH BETTER TODAY AND LESS SHORT OF BREATH WITH ACTIVITY. PATIENT VITALS [place]. CALL LIGHT IN REACH AND PATIETN CALLS APPROPRIATELY.
--- NOTE | 2024-06-18 09:30 | NUR ---
PATIENT DOES NOT NEED ANY CASE MANAGEMENT AT THIS TIME.
--- NOTE | 2024-06-18 11:26 | NUR ---
PATIENT LAYING IN BED VISITING ON PHONE. NO NEEDS AT THIS TIME.
--- NOTE | 2024-06-18 11:36 | NUR ---
VISITED DURING SPIRITUAL CARE ROUNDS. PT APPEARED TO BE SLEEPING. DID NOT DISTURB. PROVIDED PRAYER.
[2024-06-18] MEDS ORDERED: BUTALB/ACETAMINOPHEN/CAFFEINE 1 EACH CAP PO PRN (13:00)
--- NOTE | 2024-06-18 14:15 | NUR ---
PATIENT IS LYING ON THEIR LEFT SIDE WITH EYES CLOSED AND RESPIRATIONS ARE EVEN AND UNLABORED. CALL LIGHT AND PERSONAL BELONGINGS ARE WITHIN REACH.
--- NOTE | 2024-06-18 14:25 | NUR ---
LEVAQUIN INFUSION COMPLETE. IV SITE FLUSHED WITH 10 ML NORMAL SALINE AND IS SALINE LOCKED. IV DRESSING IS CLEAN, DRY, AND INTACT. PATIENT DISCONNECTED FROM THE MONITOR PER PRIMARY RN. PATIENT WALKED TO THE BATHROOM WITH SBA. PATIENT STATED NO FURTHER NEEDS AT THIS TIME. CALL LIGHT AND PERSONAL BELONGINGS ARE WITHIN REACH.
--- NOTE | 2024-06-18 15:08 | NUR ---
PATIENT IS LYING IN BED AND LOOKING ON THEIR PHONE. PATIENT STATED NO FURTHER NEEDS AT THIS TIME. CALL LIGHT AND PERSONAL BELONGINGS ARE WITHIN REACH.
--- NOTE | 2024-06-18 16:00 | NUR ---
PATIENT REPORTS HER HEADACHE HAS IMPROVED. PATIENT VISITING WITH HER ALBERTOBAN. PATIENT IS VERY TALKATIVE THIS AFTERNOON AND STAFF HAVE BEEN IN AND OUT TO ASSIST PATIENT NEEDED. PATIENT ENCOURAGED TO GET UP AND AMBULATE TOLERABLE. PATIENT OFF OF MONITOR AT THIS TIME.
--- NOTE | 2024-06-18 18:27 | NUR ---
REPORT RECEIVED FROM MYNOR WILSON FROM THE CCU.
--- NOTE | 2024-06-18 18:45 | NUR ---
REPORT GIVEN TO MEDICAL RN ANIBAL AND PATIENT WALKED TO NEW ROOM ON THE MEDICAL UNIT. REVIEWED PLAN OF CARE. PATIENTS HEADACHE CONTINUES TO BE IMPROVED. PATIENT ON RA. ALL BELONGIGNS SENT WITH PATIENT AND RN.
--- NOTE | 2024-06-18 18:45 | NUR ---
PATIENT WENT FOR A WALK AND THEN BACK TO ROOM FOR DINNER. PATIENT WILL TX TO MEDICAL UNIT THIS EVENING. PATIENT TALKED WITH PROVIDER ABOUT A "FEVER BLISTER". PATIENT REPORTS SHE USES [employer] FOR THIS AND PER PROVIDER SHE CAN USE THIS NEEDED FOR HER LIPS.
--- NOTE | 2024-06-18 18:45 | NUR ---
PATIENT ARRIVED TO THE MEDICAL SURGICAL FLOOR.
--- NOTE | 2024-06-18 19:10 | NUR ---
REPORT RECEIVED FROM KIM LOWE. pt RESTING IN THE BED. BOARD UPDATED. pt DENIES ANY OTHER NEEDS AT THIS TIME. CALL LIGHT WITHIN REACH.
--- NOTE | 2024-06-18 20:58 | NUR ---
TELEPHONE ENGINEER OBTAINED VITALS AND INTAKE. NO NEW OUTPUT AT THIS TIME. PT STATES NO NEEDS AND CALL LIGHT WITHIN REACH.
--- NOTE | 2024-06-18 21:35 | NUR ---
ASSESSMENT DONE. SCHEDULED MEDS ADMINSITERED. pt DENIES ANY OTHER NEEDS AT THIS TIME. LUNG SOUNDS ARE CLEAR. IV ASSESSED, WNL. CALL LIGHT WITHIN REACH.
--- NOTE | 2024-06-18 23:30 | NUR ---
pt RESTING IN THE BED. pt DENIES ANY NEEDS AT THIS TIME. CALL LIGHT WITHIN REACH.
--- NOTE | 2024-06-19 02:10 | NUR ---
pt RESTING IN THE BED WITH EYES CLOSED. RR EVEN AND UNLABORED. CALL LIGHT WITHIN REACH.
--- NOTE | 2024-06-19 04:03 | NUR ---
pt RESTING IN THE BED WITH EYES CLOSED. RR EVEN AND UNLABORED. CALL LIGHT WITHIN REACH.
[2024-06-19 05:17] VITALS: BP 141/84
[2024-06-19 05:21] LABS: BASOPHILS 0.4 % (0-2); EOSINOPHILS 1.3 % (0-6); HEMATOCRIT 34.5 % (35.0-50.0); HEMOGLOBIN 11.6 g/dL (12.0-18.0); LYMPHOCYTES 18.5 % (24-44); MCHC 33.8 g/dl (30-36); MCV 91.7 fl (81-99); MONOCYTES 7.1 % (0-12); NEUTROPHILS 72.7 % (39-80); PLATELET COUNT 214 K/uL (140-440); RBC 3.76 M/ul (4.3-5.7); RDW 13.3 (10.5-15.0)
[2024-06-19 05:36] LABS: ALBUMIN 2.3 g/dL (3.4-5.0); ALBUMIN/GLOBULIN RATIO 0.52 (1.1-2.4); BILIRUBIN, TOTAL 0.4 ng/dL (0.2-1.0); BUN/CREATININE RATIO 8.69 (6.0-28.6); CREATININE, SERUM 0.69 mg/dL (0.55-1.02); PROTEIN, TOTAL 6.7 g/dL (6.4-8.2)
--- NOTE | 2024-06-19 07:15 | NUR ---
REPORT RECEIVED FROM BRAZER REPAIR AND SALVAGE RN STEVE. PATIENT IS SITTING UPRIGHT ON THE EDGE OF BED. PATIENT IS REQUESTING COFFEE BUT NO FURTHER NEEDS. CALL LIGHT AND PERSONAL BELONGINGS ARE WITHIN REACH.
--- NOTE | 2024-06-19 07:30 | NUR ---
PATIENT IS LYING IN BED WITH HOB ELEVATED. FULL ASSESSMENT COMPLETE AND DOCUMENTED IN THE CHART. PATIENT IS INDEPENDENT IN THE ROOM. FRESH CUP OF COFFEE PROVIDED BY TERENCE. PATIENT IS ALERT AND ORIENTED TIMES FOUR. CARDIAC WITH NORMAL S1 AND S2 ON AUSCULTATION. RADIAL PULSES ARE STRONG BILATERALLY. LEFT PEDAL PULSE IS STRONG. RIGHT PEDAL PULSE FOUND WITH DOPPLER. CAPILLARY REFILL IN THE UPPER AND LOWER EXTREMITIES IS LESS THAN 3 SECONDS BILATERALLY. IV FLUSHED WITH 10 ML NORMAL SALINE AND IS SALINE LOCKED. IV DRESSING IS CLEAN, DRY, AND INTACT. SENSATION INTACT WITH TINGLING REPORTED IN THE BILATERAL LOWER EXTREMITIES. PATIENT IS ON A REGULAR DIET AND BOWEL TONES ARE ACTIVE IN ALL FOUR QUADRANTS. PATIENT IS ON ROOM AIR AND LUNG SOUNDS ARE CLEAR IN ALL LUNG OLIVA BILATERALLY. PATIENT WITH COMPLAINTS OF SOB. SKIN WITH SCATTERED BRUISING AND SCATTERED TATTOOS NOTED. PATIENT WITH TWO LARGE AND DEEP SCARS ON THE LOWER BACK. PATIENT REPORT PAIN TO BE 4/10 AT THIS TIME AND IS NOT REQUESTING PAIN INTERVENTION. PATIENT STATED NO FURTHER NEEDS AT THIS TIME. CALL LIGHT AND PERSONAL BELONGINGS ARE WITHIN REACH.
--- NOTE | 2024-06-19 08:00 | NUR ---
INTO SEE PATIENT. PATIENT IS ALERT AND ORIENTED. SHE STATES "I SLEPT OKAY HERE LAST NIGHT AND I AM THINKING I MIGHT GET TO GO HOME TODAY." PATIENT DOES NOT NEED ANYTHING FROM CASE MANAGEMENT.
[2024-06-19] MEDS ORDERED: SENNOSIDES/DOCUSATE 1 EA TAB PO SCH (09:00)
[2024-06-19] MEDS ORDERED: POLYETHYLENE GLYCOL 3350 1 PACKET PO SCH (09:00)
--- NOTE | 2024-06-19 09:21 | NUR ---
0900 MIRALAX AND SENNA ADMINISTERED PER THE EMAR. PATIENT EXPRESSED CONCERN ABOUT GETTING CONSTIPATED. PATIENT IS SPEAKING ON THE PHONE. PATIENT STATED NO FURTHER NEEDS AT THIS TIME. CALL LIGHT AND PERSONAL BELONGINGS ARE WITHIN REACH.
[2024-06-19 09:47] VITALS: BP 112/73
[2024-06-19 10:30] VITALS: BP 112/73
--- NOTE | 2024-06-19 10:32 | NUR ---
PATIENT IS IN THE BATHROOM AT THIS TIME AND PERFORMING DAILY CARE. CALL LIGHT AND PERSONAL BELONGINGS ARE WITHIN REACH.
[2024-06-19] MEDS ORDERED: LEVOFLOXACIN750 MG PO (10:45)
--- NOTE | 2024-06-19 11:00 | NUR ---
UR CONCURRENT REVIEW: [facility] INPT DC [place] CRITERIA FOR PNEUMONIA ODS [facility] INPT 06/16/24 @ 1817 ORDER MATCHES REG CLINICALS SENT FOR AUTH REVIEW DISCHARGE TO HOME TODAY 06/22/24
--- NOTE | 2024-06-19 11:02 | NUR ---
IV SITE FLUSHED WITH 10 ML NORMAL SALINE. IV DRESSING IS CLEAN, DRY, AND INTACT. IV INFUSING LEVOQUINAT 100 ML/HR. PATIENT STATED NO FURTHER NEEDS AT THIS TIME. CALL LIGHT AND PERSONAL BELONGINGS ARE WITHIN REACH.
[2024-06-19] MEDS ORDERED: levoFLOXacin 750 MG TAB PO ONE (11:15)
== END 2024-06-19 11:30 | disposition home or self-care (01) | DRG 871 ==
LOC: ED 12:34 → MS 17:29 → CCU 17:54 → MS 06-18 18:45
PROVIDERS: Emergency Medicine; ADMIT Family Medicine; ATTEND Family Medicine
PROC: 3E033XZ Introduction of Vasopressor into Peripheral Vein, Percutaneous Approach (ICD-10-PCS; principal; 2024-06-16)
PROC: 3E03329 Introduction of Other Anti-infective into Peripheral Vein, Percutaneous Approach (ICD-10-PCS; 2024-06-16)
DX: A41.9 Sepsis, unspecified organism (principal); J18.9 Pneumonia, unspecified organism; N39.0 Urinary tract infection, site not specified; J44.0 Chronic obstructive pulmonary disease with (acute) lower respiratory infection; M79.7 Fibromyalgia; M32.9 Systemic lupus erythematosus, unspecified; M19.90 Unspecified osteoarthritis, unspecified site; E87.6 Hypokalemia; E83.42 Hypomagnesemia; M54.50 Low back pain, unspecified; G89.29 Other chronic pain; Z88.1 Allergy status to other antibiotic agents; Z88.5 Allergy status to narcotic agent; Z88.8 Allergy status to other drugs, medicaments and biological substances; Z98.890 Other specified postprocedural states; Z90.710 Acquired absence of both cervix and uterus; Z90.89 Acquired absence of other organs; Z90.49 Acquired absence of other specified parts of digestive tract; Z98.1 Arthrodesis status
CPT/HCPCS: 36415; 71045; 71260; 72131; 80053; 81001; 83605; 83735; 83880; 84100; 84484; 85025; 87040; 87088; 87502; 93005; 93010; 94640; 94667; 94668; 94760; 96361; 96365; 96375; 99285-25; A9270; J1650; J1956; J2270; J2405; J3475; J3480; J7030; Q9967; U0002